=== PATIENT | female | born 1995 | race Caucasian/White ===

== ENCOUNTER → 2020-10-28 | Outpatient (CLI) | payer BC ==
--- NOTE | 2020-10-28 10:31 | US ---
EXAMINATION TYPE: Transabdominal DATE OF EXAM: 10/28/2020 8:16 AM COMPARISON: NONE CLINICAL HISTORY: Z36 confirm dates. Confirm Dates EXAM PERFORMED: Transabdominal (TA) EXAM MEASUREMENTS: GESTATIONAL AGE / DATING Physician Established (7 weeks/6 days) EDC: 06/10/2021 Dates by LMP (7 weeks/6 days) EDC: 06/10/2021 Dates by First Scan: No previous this is first scan Dates by Current Scan for (7 weeks/0 days) EDC: 06/16/2021 MATERNAL ANATOMY Uterus: 12.1 x 5.4 x 7.2 cm Right Ovary: 3.1 x 2.5 x 2.5 cm Left Ovary: 2.5 x 1.8 x 2.0 cm Post CDS / Adnexa: wnl Presence of free fluid: No Presence of corpus luteal cyst: Right Ovary= 1.8 x 1.8 x 1.8 cm GESTATION / SURVEY CRL: 0.9 cm (7 weeks/0 days) MSD: wnl Yolk Sac (normal less than 6mm): 3mm Heart Rate: 135 bpm Rhythm: Normal IUP: Viable IUP Date of LMP: 09/03/2020 Single, viable IUP/ No abnormality visualized at this time IMPRESSION: 1. Single intrauterine with an average ultrasound gestational age of 7 weeks. [place]-rump le ngth is 9 mm. Yolk sac is 3 mm. heart rate is 135 bpm.
== END | disposition home or self-care (01) ==
LOC: RADUSWWP 07:59
PROVIDERS: ATTEND Obstetrics & Gynecology
DX: Z36.87 Encounter for antenatal screening for uncertain dates (principal); Z3A.01 Less than 8 weeks gestation of pregnancy
CPT/HCPCS: 76801

== ENCOUNTER 2021-04-23 16:46 | Outpatient (CLI) | payer BC ==
[2021-04-23 18:15] LABS: Glucose,Whole Blood 128 mg/dL (75-99)
[2021-04-23 18:39] VITALS: BP 133/72; PULSE 114; RESP 16; TEMP 98
--- NOTE | 2021-05-20 07:10 | P.MSEPDOC ---
Presenting Problems - Arrival Data Date of Arrival on Unit: 04/23/21 Time of Arrival on Unit: 18:20 Mode of Transport: Ambulatory - Complaint OB-Reason for Admission/Chief Complaint: Dizziness, Other Comment: dizzy and almost passed out at home. at 1530 while working at desk. Medical History - Information : 1 Para: 0 Term: 0 : 0 Abortions: Spontaneous or Elective: 0 Number of Living Children: 0 - Gestational Age Gestational Age by KIMBERLYN (wks/days): 33 Weeks and 1 Days Review of Systems - Review of Systems Constitutional: No problems Breast: No problems ENT: No problems Cardiovascular: No problems Respiratory: No problems Gastrointestinal: No problems Genitourinary: No problems Musculoskeletal: No problems Neurological: No problems Skin: No problems Vital Signs - Temperature Temperature: 98.0 F Temperature Source: Axillary - Pulse Apical Pulse Rate: 114 Pulse Assessment Method: Auscultation - Respirations Respiratory Rate: 16 Oxygen Delivery Method: Room Air O2 Sat by Pulse Oximetry: 99 - Blood Pressure Right Arm Blood Pressure: 133/72 Blood Pressure Mean: 92 Blood Pressure Source: Automatic Cuff Medical Screen Scoring - Assessment - Baby A Baseline FHR: 140 Heart Rate - NICHD Category: Category I (Normal) NST: Reactive Physician Notification - Physician Notified Physician Notified Date: 04/23/21 Physician Notified Time: 18:20 Physician: Pilar Dye Order Received: Yes (discharge home) Maternal Triage Index - Non-Urgent/Priority 4 Non-Urgent Priority 4: Yes Criteria Met for Priority 4: ok now. just very worried about spell. no problems verbalizes. did see high risk for u/s early preg. Disposition - Disposition OB Disposition: Discharge to home, Written follow up instructions reviewed Discharge Date: 04/23/21 Discharge Time: 18:26 I agree with the RN Medical Screening Exam: Yes Case reviewed; plan agreed upon as documented in EMR&OBIX.: Yes Diagnosis: DIZZINESS AND GIDDINESS
== END 2021-04-23 18:26 | disposition home or self-care (01) ==
LOC: FBPOP 16:46
PROVIDERS: ATTEND Obstetrics & Gynecology
DX: O26.813 Pregnancy related exhaustion and fatigue, third trimester (principal); Z3A.33 33 weeks gestation of pregnancy
CPT/HCPCS: 59025; 99213

== ENCOUNTER 2021-05-29 22:22 | Outpatient (CLI) | payer BC ==
[2021-05-30 00:04] VITALS: BP 138/73; PULSE 94; RESP 16; TEMP 97.9
--- NOTE | 2021-05-30 14:54 | P.MSEPDOC ---
Presenting Problems - Arrival Data Date of Arrival on Unit: 05/29/21 Time of Arrival on Unit: 22:22 Mode of Transport: Ambulatory - Complaint OB-Reason for Admission/Chief Complaint: Rule Out SROM Comment: pt. present to triage due to possible SROM at 20:45, amnisure negative, contractions irregular, no cervical change after 1 hour Medical History - Information : 1 Para: 0 Term: 0 : 0 Abortions: Spontaneous or Elective: 0 Number of Living Children: 0 - Gestational Age Gestational Age by KIMBERLYN (wks/days): 38 Weeks and 3 Days Review of Systems - Review of Systems Constitutional: No problems Breast: No problems ENT: No problems Cardiovascular: No problems Respiratory: No problems Gastrointestinal: No problems Genitourinary: No problems Musculoskeletal: No problems Neurological: No problems Skin: No problems Vital Signs - Temperature Temperature: 97.9 F Temperature Source: Tympanic - Pulse Pulse Oximetery Pulse Rate: 94 Pulse Assessment Method: Automatic Cuff - Respirations Respiratory Rate: 16 Oxygen Delivery Method: Room Air O2 Sat by Pulse Oximetry: 97 - Blood Pressure Right Arm Blood Pressure: 138/73 Blood Pressure Mean: 94 Blood Pressure Source: Automatic Cuff Medical Screen Scoring - Cervical Exam Dilation (cm): 4 Effacement (%): 50 Station: -3 Membranes: Intact - Uterine Contractions Frequency From (mins): 3 Frequency To (mins): 10 Duration From (seconds): 50 Duration To (seconds): 110 Intensity: Absent Resting: Soft to palpation - Assessment - Baby A Baseline FHR: 140 Heart Rate - NICHD Category: Category I (Normal) NST: Reactive Physician Notification - Physician Notified Physician Notified Date: 05/30/21 Physician Notified Time: 23:40 Physician: Dr. BLANCO New Order Received: No - Notification Comment Comment: Orders to discharge patient home Maternal Triage Index - Maternal Triage Index Presenting for scheduled procedure w/no complaint: No - Stat/Priority 1 Stat Priority 1: No - Urgent/Priority 2 Urgent Priority 2: No - Prompt/Priority 3 Prompt Priority 3: No - Non-Urgent/Priority 4 Non-Urgent Priority 4: Yes Criteria Met for Priority 4: pt. present to triage due to possible SROM at 20:45, amnisure negative, contractions irregular, no cervical change after 1 hour Disposition - Disposition OB Disposition: Discharge to home Discharge Date: 05/30/21 Discharge Time: 23:49 I agree with the RN Medical Screening Exam: Yes Case reviewed; plan agreed upon as documented in EMR&OBIX.: Yes Diagnosis: FALSE LABOR AT OR AFTER 37 COMPLETED WEEKS OF GESTATION
== END 2021-05-29 23:49 | disposition home or self-care (01) ==
LOC: FBPOP 22:22
PROVIDERS: ATTEND Obstetrics & Gynecology
DX: O47.1 False labor at or after 37 completed weeks of gestation (principal); Z3A.38 38 weeks gestation of pregnancy
CPT/HCPCS: 59025; 84112; 99213

== ENCOUNTER 2021-06-03 05:40 | Inpatient (IN) | payer BC ==
--- NOTE | 2021-06-02 20:07 | P.HPOB ---
History of Present Illness H&P Date: 06/02/21 Chief Complaint: Induction of labor This is a 26 y.o. female, 1, para 0, with an estimated date of confinement of 06/10/2021, estimated gestational age of 39 weeks, who presents for induction of labor. She complains of frequent irregular contractions and pressure. course has been uncomplicated. labs: GC/Chlamydia/Trich-neg Hepatitis B surface antigen-neg [id number] Blood type-A+ Antibody screen-neg HIV-NR Hemoglobin-14 Random glucose-106 [id number] AFP-neg. 1 hr. GTT-164 3 hr. 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 Works from home. Review of Systems Constitutional: Denies chills, Denies fever Eyes: denies blurred vision, denies pain Ears, nose, mouth and throat: Denies headache, Denies sore throat Cardiovascular: Denies chest pain, Denies shortness of breath Respiratory: Denies cough Gastrointestinal: Reports abdominal pain (irregular contractions) Genitourinary: Reports pelvic pain, Reports Musculoskeletal: Reports low back pain Integumentary: Denies pruritus, Denies rash Neurological: Denies numbness, Denies weakness Psychiatric: Denies anxiety, Denies depression Past Medical History Past Medical History: Hyperlipidemia Additional Past Medical History / Comment(s): PCOS History of Any Multi-Drug Resistant Organisms: None Reported Additional Past Surgical History / Comment(s): [place] teeth Past Anesthesia/Blood Transfusion Reactions: No Reported Reaction Past Psychological History: No Psychological Hx Reported Smoking Status: Never smoker Past Alcohol Use History: None Reported Past Drug Use History: None Reported - Past Family History Father Family Medical History: Hypertension Brother(s) Additional Family Medical History / Comment(s): Blindness, Autism Medications and Allergies Home Medications Medication Instructions Recorded Confirmed Type Vit No.170/Iron/Folic 1 tab PO DAILY 04/23/21 05/29/21 History [Dermacinrx Prenatryl Caplet] Allergies Allergy/AdvReac Type Severity Reaction Status Date / Time acetaminophen [From [place]] Allergy Vomiting Verified 05/29/21 22:27 hydrocodone [From [place]] Allergy Vomiting Verified 05/29/21 22:27 Exam Osteopathic Statement: *. No significant issues noted on an osteopathic structural exam other than those noted in the History and Physical/Consult. HEENT: within normal limits Heart: regular rate and rhythm Lungs: clear to auscultation bilaterally Abdomen: , non-tender Cervix: 3.5 cm/60%/-2 heart tones: 140's by doppler Extremities: neg. Lester's Assessment and Plan (1) 39 weeks gestation of Status: Acute Code(s): Z3A.39 - 39 WEEKS GESTATION OF SNOMED Code(s): 82556646 Plan: Admission for oxytocin induction of labor. Expectant management. Epidural anesthesia if desired.
[2021-06-03] MEDS ORDERED: CARBOPROST TROMETHAMINE 250 MCG/ML 1 ML AMP IM PRN (05:53)
[2021-06-03] MEDS ORDERED: METHYLERGONOVINE 0.2 MG/ML 1 ML AMP IM PRN (05:53)
[2021-06-03] MEDS ORDERED: LIDOCAINE 1% (10MG/ML) FOR IV START INTRADERMA PRN (05:53)
[2021-06-03] MEDS ORDERED: TERBUTALINE 1 MG/ML VIAL SQ PRN (05:53)
[2021-06-03] MEDS ORDERED: OXYTOCIN 10 UNIT/ML 1 ML VIAL IM PRN (05:53)
[2021-06-03] MEDS ORDERED: OXYTOCIN 30 UNITS/500 ML NS 30 UNIT in SALINE 1 500ML.BAG IV SCH ×2 (05:53→14:15)
[2021-06-03] MEDS ORDERED: LIDOCAINE 0.5% (PF) 5 MG/ML (50 ML SDV) SQ PRN (05:53)
[2021-06-03] MEDS: LACTATED RINGERS 1,000 ML IV SCH ×2 (06:07→12:00)
[2021-06-03 06:19] LABS: Basophils % (A) 0 %; Eosinophils # (A) 0.1 k/uL (0-0.7); Eosinophils % (A) 2 %; HCT 37.2 % (34.0-46.0); HGB 11.8 gm/dL (11.4-16.0); Hypochromasia Slight; Lymphocytes # (A) 1.9 k/uL (1.0-4.8); Lymphocytes % (A) 25 %; MCH 28.3 pg (25.0-35.0); MCHC 31.6 g/dL (31.0-37.0); MCV 89.5 fL (80.0-100.0); Mean Platelet Volume 7.8; Monocytes # (A) 0.6 k/uL (0-1.0); Monocytes % (A) 8 %; Neutrophils # (A) 4.8 k/uL (1.3-7.7); Neutrophils % (A) 63 %; Platelet Count 354 k/uL (150-450); RBC 4.15 m/uL (3.80-5.40); RDW 14.8 % (11.5-15.5); WBC 7.5 k/uL (3.8-10.6)
[2021-06-03] MEDS ORDERED: ROPIVACAINE 100 MG, fentaNYL (PF). 200 MCG in SODIUM CHLORIDE 0.9% 76 ML EPIDURAL ONE (09:59)
--- NOTE | 2021-06-03 13:58 | P.PROBDLV ---
Vaginal Delivery Note - . Vaginal Delivery Note: The patient progressed to complete dilation after oxytocin induction of labor and artificial rupture membranes with clear fluid noted. She did receive epidural anesthesia. Once reaching complete, she began pushing. 's head came to a crown. With one further push, the infant's head delivered across the perineum. The anterior shoulder then delivered followed by a nuchal cord 1 that was reduced around the body with delivery. was placed on mother's abdomen. Cord was clamped and cut and nose and mouth were bulb suctioned. A viable female infant was noted with scores of 9 at 1 minute and 9 at 5 minutes and infant weight of 7 pounds 6.5 ounces. Her placenta delivered shortly thereafter, intact, with a three-vessel cord. Uterus contracted well after oxytocin was given and uterine massage was carried out. Inspection of the perineum revealed a second-degree perineal laceration. This area was anesthetized with 1% lidocaine and then sutured with 3-0 and 2-0 Vicryl suture in the usual multilayer fashion. Estimated blood loss is approximately 300 mL's. Mother and infant are in stable condition.
[2021-06-03] MEDS ORDERED: LANOLIN CREAM 5 GM TUBE TOPICAL PRN (14:05)
[2021-06-03] MEDS ORDERED: diphenhydrAMINE 50 MG CAP PO PRN (14:05)
[2021-06-03] MEDS ORDERED: diphenhydrAMINE 25 MG CAP PO PRN (14:05)
[2021-06-03] MEDS ORDERED: ACETAMINOPHEN TAB 325 MG TAB PO PRN (14:05)
[2021-06-03] MEDS ORDERED: ZOLPIDEM 5 MG TAB PO PRN (14:05)
[2021-06-03] MEDS ORDERED: BENZOCAINE/MENTHOL SPRAY 1 GM/SPRAY AEROSOL TOPICAL PRN (14:05)
[2021-06-03] MEDS ORDERED: diphenhydrAMINE 50 MG/ML 1 ML VIAL IVP PRN ×2 (14:05)
[2021-06-03] MEDS ORDERED: MEASLES-MUMPS-RUBELLA VACC/PF 12,500 UNIT/0.5 ML VIAL SQ ONE (14:05)
[2021-06-03] MEDS ORDERED: HYDROCORTISONE 2.5% RECTAL CREAM 30 GM TUBE RECTAL PRN (14:05)
[2021-06-03] MEDS ORDERED: SIMETHICONE 80 MG CHEWABLE PO PRN (14:05)
[2021-06-03] MEDS: IBUPROFEN 600 MG TAB PO PRN ×2 (14:10→22:04)
[2021-06-03] MEDS: ACETAMINOPHEN TAB 500 MG TAB PO PRN (17:31)
[2021-06-03 18:18] LABS: Basophils % (A) 0 %; Eosinophils # (A) 0.1 k/uL (0-0.7); Eosinophils % (A) 1 %; HCT 33.1 % (34.0-46.0); HGB 10.6 gm/dL (11.4-16.0); Hypochromasia Moderate; Lymphocytes # (A) 1.4 k/uL (1.0-4.8); Lymphocytes % (A) 10 %; MCH 29.3 pg (25.0-35.0); MCHC 32.1 g/dL (31.0-37.0); MCV 91.3 fL (80.0-100.0); Mean Platelet Volume 8.1; Monocytes # (A) 0.7 k/uL (0-1.0); Monocytes % (A) 5 %; Neutrophils # (A) 11.6 k/uL (1.3-7.7); Neutrophils % (A) 84 %; Platelet Count 315 k/uL (150-450); RBC 3.63 m/uL (3.80-5.40); RDW 14.9 % (11.5-15.5); WBC 13.9 k/uL (3.8-10.6)
[2021-06-03] MEDS: SENNOSIDES-DOCUSATE SODIUM 1 EACH TAB PO SCH (22:04)
[2021-06-04 02:14] VITALS: RESP 16
[2021-06-04] MEDS: ACETAMINOPHEN TAB 500 MG TAB PO PRN ×2 (04:20→11:27)
[2021-06-04 07:32] LABS: Basophils % (A) 0 %; Eosinophils # (A) 0.1 k/uL (0-0.7); Eosinophils % (A) 1 %; HCT 28.5 % (34.0-46.0); HGB 9.2 gm/dL (11.4-16.0); Hypochromasia Slight; Lymphocytes # (A) 1.6 k/uL (1.0-4.8); Lymphocytes % (A) 16 %; MCH 29.3 pg (25.0-35.0); MCHC 32.3 g/dL (31.0-37.0); MCV 90.8 fL (80.0-100.0); Mean Platelet Volume 8.6; Monocytes # (A) 0.7 k/uL (0-1.0); Monocytes % (A) 7 %; Neutrophils # (A) 7.3 k/uL (1.3-7.7); Neutrophils % (A) 75 %; Platelet Count 273 k/uL (150-450); RBC 3.14 m/uL (3.80-5.40); WBC 9.7 k/uL (3.8-10.6)
[2021-06-04 08:01] VITALS: BP 115/65; PULSE 85; TEMP 98.3
[2021-06-04] MEDS: IBUPROFEN 600 MG TAB PO PRN ×2 (08:21→15:05)
[2021-06-04] MEDS: SENNOSIDES-DOCUSATE SODIUM 1 EACH TAB PO SCH (08:21)
--- NOTE | 2021-06-04 09:52 | P.DS ---
Providers Date of admission: 06/03/21 05:40 Expected date of discharge: 06/04/21 Attending physician: Lillian Hall Primary care physician: Stated None - Discharge Diagnosis(es) (1) 39 weeks gestation of Current Visit: No Status: Acute Hospital Course: This is a 26-year-old female 1 para 0 at 39-0/7 weeks who presented for induction of labor. She underwent oxytocin induction of labor and delivered vaginally a viable female with scores of 9 at 1 minute and 9 at 5 minutes and weight of 7 pounds 6.5 ounces. Her course has been essentially uncomplicated. Initially her pain was more severe but has improved with alternating ibuprofen and Tylenol. She denies any headaches or dizziness or shortness of breath. Vital signs are stable. Abdomen is soft with fundus firm and nontender. Extremities show negative Homans. Impression is status post vaginal delivery day #1. Plan is to discharge home today. Routine instructions are given. She is advised to continue taking her vitamins and iron supplementation. She is advised follow-up in the office in 6 weeks for a check. She is advised to call the office if she has any further questions or concerns prior to her appointment time. She will be given a prescription for a breast pump. Procedures: Oxytocin induction of labor Spontaneous vaginal delivery of a viable female on 06/03/2021 Patient Condition at Discharge: Stable Plan - Discharge Summary New Discharge Prescriptions: New Acetaminophen Tab [Tylenol] 1,000 mg PO Q6HR PRN tab PRN Reason: Fever And/ Or Pain Ibuprofen [Motrin] 600 mg PO Q6HR PRN #60 tab PRN Reason: Mild Pain (Scale 1 To 3) Continue Vit No.170/Iron/Folic [Dermacinrx Prenatryl Caplet] 1 tab PO DAILY Discharge Medication List Vit No.170/Iron/Folic [Dermacinrx Prenatryl Caplet] 1 tab PO DAILY 04/23/21 [History] Acetaminophen Tab [Tylenol] 1,000 mg PO Q6HR PRN tab 06/04/21 [Rx] Ibuprofen [Motrin] 600 mg PO Q6HR PRN #60 tab 06/04/21 [Rx] Follow up Appointment(s)/Referral(s): Lillian Hall DO [Doctor of Osteopathic Medicine] - 07/13/21 11:30 am Activity/Diet/Wound Care/Special Instructions: Instructions 1. Do not begin any exercise program for 3 weeks. 2. Do not resume sexual relations for 3 weeks or longer if uncomfortable. 3. You may take tub baths or showers at any time. 4. You may use tampons if desired after 3 weeks. 5. Keep the area of episiotomy (stitches) clean and dry. 6. If you are not nursing, wear a good fitting, supportive bra during the day and limit fluid intake for at least 1 week to prevent breast engorgement. 7. Call the office, [phone], within the next week to make appointment for your 6 week checkup if it has not already been made. 8. Report any of the following occurrences to the doctor promptly: a. Heavy, excessive bleeding b. Chills, fever c. Burning or frequency of urination d. Pain or redness and breasts if nursing e. Increasing pain or swelling in episiotomy (stitches). In addition to the above instructions, the following additional should be followed: 1. No heavy lifting or straining (exercising) until after 6 week checkup. 2. Keep abdominal incision clean and dry: You may wear a dressing if more comfortable. 3. Make office appointment for 10 days after going home or as instructed by her doctor. Discharge Disposition: HOME SELF-CARE
== END 2021-06-04 15:15 | disposition home or self-care (01) | DRG 807 ==
LOC: 4FBP 05:40
PROVIDERS: ADMIT Obstetrics & Gynecology; ATTEND Obstetrics & Gynecology
PROC: 10E0XZZ Delivery of Products of Conception, External Approach (ICD-10-PCS; principal; 2021-06-03)
PROC: 0KQM0ZZ Repair Perineum Muscle, Open Approach (ICD-10-PCS; 2021-06-03)
PROC: 10907ZC Drainage of Amniotic Fluid, Therapeutic from Products of Conception, Via Natural or Artificial Opening (ICD-10-PCS; 2021-06-03)
PROC: 3E033VJ Introduction of Other Hormone into Peripheral Vein, Percutaneous Approach (ICD-10-PCS; 2021-06-03)
DX: O69.81X0 Labor and delivery complicated by cord around neck, without compression, not applicable or unspecified (principal); Z37.0 Single live birth; O70.1 Second degree perineal laceration during delivery; O99.284 Endocrine, nutritional and metabolic diseases complicating childbirth; E28.2 Polycystic ovarian syndrome; E78.5 Hyperlipidemia, unspecified; Z3A.39 39 weeks gestation of pregnancy; Z88.8 Allergy status to other drugs, medicaments and biological substances; Z88.5 Allergy status to narcotic agent
CPT/HCPCS: 85025; 86850; 86900; 86901; 90707

== ENCOUNTER 2022-07-04 17:25 | Inpatient (IN) | payer BC ==
[2022-07-04] MEDS ORDERED: LIDOCAINE 0.5% (PF) 5 MG/ML (50 ML SDV) SQ PRN (19:41)
[2022-07-04] MEDS ORDERED: AMPICILLIN 2,000 MG in SODIUM CHLORIDE 0.9% 100 ML IVPB STA (19:41)
[2022-07-04] MEDS ORDERED: TERBUTALINE 1 MG/ML VIAL SQ PRN (19:41)
--- NOTE | 2022-07-04 19:53 | P.HPOB ---
History of Present Illness H&P Date: 07/04/22 Chief Complaint: Labor 27-year-old presents at 36 weeks and 2 days complaining of contractions. Her cervix changed in triage from 3 cm to 4-5 cm dilated, 50% effaced, -2 station. She is suni every 3 minutes. heart tones are 150 with moderate variability and reactive. Review of Systems All systems: negative Constitutional: Denies chills, Denies fever Eyes: denies blurred vision, denies pain Ears, nose, mouth and throat: Denies headache, Denies sore throat Cardiovascular: Denies chest pain, Denies shortness of breath Respiratory: Denies cough Gastrointestinal: Denies abdominal pain, Denies diarrhea, Denies nausea, Denies vomiting Genitourinary: Denies dysuria, Denies hematuria Musculoskeletal: Denies myalgias Integumentary: Denies pruritus, Denies rash Neurological: Denies numbness, Denies weakness Psychiatric: Denies anxiety, Denies depression Endocrine: Denies fatigue, Denies weight change Past Medical History Past Medical History: Hyperlipidemia Additional Past Medical History / Comment(s): PCOS History of Any Multi-Drug Resistant Organisms: None Reported Additional Past Surgical History / Comment(s): [place] teeth Past Anesthesia/Blood Transfusion Reactions: No Reported Reaction Smoking Status: Never smoker - Past Family History Father Family Medical History: Diabetes Mellitus, Hypertension Brother(s) Additional Family Medical History / Comment(s): Blindness, Autism Medications and Allergies Allergies Allergy/AdvReac Type Severity Reaction Status Date / Time benzoyl peroxide Allergy Rash/Hives Verified 07/04/22 17:36 hydrocodone [From [place]] Allergy Vomiting Verified 07/04/22 17:36 salicylic acid Allergy Rash/Hives Verified 07/04/22 17:36 Exam Osteopathic Statement: *. No significant issues noted on an osteopathic structural exam other than those noted in the History and Physical/Consult. Vital Signs Temp Pulse Resp BP Pulse Ox 07/04/22 19:00 98.0 F 100 18 134/85 100 Intake and Output 07/04/22 07/04/22 07/04/22 06:59 14:59 22:59 Other: Weight 111.13 kg Heart: Regular rate and rhythm Lungs: Clear to auscultation bilaterally Abdomen: Soft, nontender Extremities: Negative Homans sign Assessment and Plan (1) Normal labor Current Visit: Yes Status: Acute Code(s): O80 - ENCOUNTER FOR FULL-TERM UNCOMPLICATED DELIVERY; Z37.9 - OUTCOME OF DELIVERY, UNSPECIFIED SNOMED Code(s): 75404463 (2) 36 weeks gestation of Current Visit: Yes Status: Acute Code(s): Z3A.36 - 36 WEEKS GESTATION OF SNOMED Code(s): 39618727 Plan: 1. Admit to family place 2. Expectant management 3. IV antibiotics for GBS prophylaxis and status 4. Anticipate normal vaginal delivery
[2022-07-04 20:04] LABS: Basophils # (A) 0.1 k/uL (0-0.2); Basophils % (A) 0 %; Eosinophils # (A) 0.1 k/uL (0-0.7); Eosinophils % (A) 1 %; HCT 35.3 % (34.0-46.0); HGB 11.6 gm/dL (11.4-16.0); Lymphocytes # (A) 1.8 k/uL (1.0-4.8); Lymphocytes % (A) 16 %; MCH 26.8 pg (25.0-35.0); MCHC 32.7 g/dL (31.0-37.0); MCV 81.8 fL (80.0-100.0); Mean Platelet Volume 9.3; Monocytes # (A) 0.8 k/uL (0-1.0); Monocytes % (A) 7 %; Neutrophils # (A) 8.8 k/uL (1.3-7.7); Neutrophils % (A) 75 %; Platelet Count 301 k/uL (150-450); RBC 4.32 m/uL (3.80-5.40); RDW 15.5 % (11.5-15.5); WBC 11.7 k/uL (3.8-10.6)
[2022-07-04] MEDS: LACTATED RINGERS 1,000 ML IV SCH (20:27)
[2022-07-05] MEDS: AMPICILLIN 1,000 MG in SODIUM CHLORIDE 0.9% 50 ML IVPB SCH ×3 (01:04→08:46)
[2022-07-05] MEDS ORDERED: CALCIUM CARBONATE 500 MG CHEWABLE PO PRN (02:21)
[2022-07-05] MEDS: LACTATED RINGERS 1,000 ML IV SCH ×3 (04:38→22:28)
[2022-07-05] MEDS ORDERED: BUPIVACAINE (PF) 0.25% 30 ML VIAL ONE (09:39)
[2022-07-05] MEDS ORDERED: fentaNYL (PF) 50 MCG/ML 5 ML AMP ONE (09:39)
[2022-07-05] MEDS ORDERED: SODIUM CHLORIDE 0.9% 100 ML BAG ONE (09:39)
[2022-07-05] MEDS ORDERED: OXYTOCIN 30 UNITS/500 ML NS 30 UNIT in SALINE 1 500ML.BAG IV SCH ×2 (10:45→13:30)
[2022-07-05] MEDS ORDERED: ROPIVACAINE 100 MG, fentaNYL (PF). 200 MCG in SODIUM CHLORIDE 0.9% 76 ML EPIDURAL ONE (10:49)
[2022-07-05] MEDS ORDERED: diphenhydrAMINE 50 MG CAP PO PRN (13:22)
[2022-07-05] MEDS ORDERED: diphenhydrAMINE 25 MG CAP PO PRN (13:22)
[2022-07-05] MEDS ORDERED: LANOLIN CREAM 5 GM TUBE TOPICAL PRN (13:22)
[2022-07-05] MEDS ORDERED: ZOLPIDEM 5 MG TAB PO PRN (13:22)
[2022-07-05] MEDS ORDERED: diphenhydrAMINE 50 MG/ML 1 ML VIAL IVP PRN ×2 (13:22)
[2022-07-05] MEDS ORDERED: SIMETHICONE 80 MG CHEWABLE PO PRN (13:22)
[2022-07-05] MEDS ORDERED: BENZOCAINE/MENTHOL SPRAY 1 GM/SPRAY AEROSOL TOPICAL PRN (13:22)
[2022-07-05] MEDS ORDERED: HYDROCORTISONE 2.5% RECTAL CREAM 30 GM TUBE RECTAL PRN (13:22)
[2022-07-05] MEDS: IBUPROFEN 600 MG TAB PO PRN ×2 (15:40→20:41)
--- NOTE | 2022-07-05 17:27 | P.PROBDLV ---
Vaginal Delivery Note - . Vaginal Delivery Note: When I saw the patient this morning, her contractions were less and she did sleep. Her cervix was 4-5 the last time she was checked last night and then this morning she was found to be 6 cm. At this point I did perform artificial rupture membranes with clear fluid noted. She had received several doses of antibiotics due to unknown group B streptococcus. She was started on oxytocin augmentation of labor. She received epidural anesthesia. Once reaching complete, she pushed for approximately 1 push and infant's head came to a crown. With one further push, the remainder the infant's head delivered followed by the anterior shoulder. Nuchal cord 1 was reduced around the 's head and then the remainder the body easily delivered and was placed on mother's abdomen. Nose and mouth were bulb suctioned. Cord was clamped and cut. Infant was taken to warmer for evaluation. A viable female infant was noted with scores of 9 at 1 minute and 9 at 5 minutes and weight of 6 lbs. 9 oz. Placenta delivered shortly afterwards intact, with a three-vessel cord. Uterus at first contracted fairly well with oxytocin and uterine massage. Inspection of the perineum revealed a second-degree perineal laceration. This area was anesthetized with 1% lidocaine and then sutured with 3-0 Vicryl suture in the usual multilayer fashion. At this time the patient was still noted to be bleeding more than normal and therefore her bladder was drained with a straight cath and then a gloved hand was placed within the uterine cavity to remove several blood clots. Once these clots were removed uterus did firm up well and bleeding was minimal. Estimated blood loss was approximately 300 mL's. Both mother and infant are in stable condition.
[2022-07-05] MEDS: ACETAMINOPHEN TAB 325 MG TAB PO PRN (18:42)
[2022-07-05] MEDS: SENNOSIDES-DOCUSATE SODIUM 1 EACH TAB PO SCH (20:41)
[2022-07-06] MEDS: ACETAMINOPHEN TAB 325 MG TAB PO PRN ×2 (00:40→08:09)
[2022-07-06] MEDS: IBUPROFEN 600 MG TAB PO PRN ×2 (04:28→10:54)
[2022-07-06 07:33] VITALS: PULSE 86; RESP 14; TEMP 98
[2022-07-06 07:39] VITALS: BP 99/68
[2022-07-06] MEDS: SENNOSIDES-DOCUSATE SODIUM 1 EACH TAB PO SCH (08:08)
[2022-07-06 08:42] LABS: Basophils % (A) 0 %; Eosinophils # (A) 0.1 k/uL (0-0.7); Eosinophils % (A) 2 %; HCT 27.7 % (34.0-46.0); Hypochromasia Slight; Lymphocytes # (A) 1.4 k/uL (1.0-4.8); Lymphocytes % (A) 20 %; MCH 27.4 pg (25.0-35.0); MCHC 32.6 g/dL (31.0-37.0); Mean Platelet Volume 8.3; Monocytes # (A) 0.5 k/uL (0-1.0); Monocytes % (A) 8 %; Neutrophils # (A) 4.7 k/uL (1.3-7.7); Neutrophils % (A) 69 %; Platelet Count 250 k/uL (150-450); RDW 15.7 % (11.5-15.5); WBC 6.9 k/uL (3.8-10.6)
--- NOTE | 2022-07-06 08:52 | P.DS ---
Providers Date of admission: 07/04/22 19:07 Expected date of discharge: 07/06/22 Attending physician: Lillian Hall Primary care physician: Stated None Hospital Course: This is a 27-year-old female 2 para 1 at 36-3/7 weeks who presented with contractions and found to make cervical change. She was observed overnight and did make cervical change to 6 cm. Artificial rupture membranes was carried out and oxytocin augmentation of labor was started. She also was given antibiotic prophylaxis due to unknown group B streptococcus. She delivered vaginally a viable female infant on 07/05/2022 with scores of 9 at 1 minute and 9 at 5 minutes and infant weight of 6 lbs. 9 oz. Her course has been uncomplicated. She is bottle feeding. Lochia is decreasing. Pain is well- controlled. Vital signs are stable. Abdomen is soft with fundus firm and nontender. Extremities show negative Homans. Impression is status post vaginal delivery day #1. Plan is to discharge home today as long as baby is able to go home. Routine instructions are given. She is advised to follow up in the office in 6 weeks for check. She will be given a prescription for ibuprofen. Procedures: Spontaneous vaginal delivery of a viable female on 07/05/2022 Patient Condition at Discharge: Stable Plan - Discharge Summary New Discharge Prescriptions: New Ibuprofen [Motrin] 600 mg PO Q6HR PRN #60 tab PRN Reason: Mild Pain (Scale 1 To 3) Discharge Medication List Ibuprofen [Motrin] 600 mg PO Q6HR PRN #60 tab 07/06/22 [Rx] Follow up Appointment(s)/Referral(s): Lillian Hall DO [Doctor of Osteopathic Medicine] - 6 Weeks Activity/Diet/Wound Care/Special Instructions: Instructions 1. Do not begin any exercise program for 3 weeks. 2. Do not resume sexual relations for 3 weeks or longer if uncomfortable. 3. You may take tub baths or showers at any time. 4. You may use tampons if desired after 3 weeks. 5. Keep the area of episiotomy (stitches) clean and dry. 6. If you are not nursing, wear a good fitting, supportive bra during the day and limit fluid intake for at least 1 week to prevent breast engorgement. 7. Call the office, [phone], within the next week to make appointment for your 6 week checkup if it has not already been made. 8. Report any of the following occurrences to the doctor promptly: a. Heavy, excessive bleeding b. Chills, fever c. Burning or frequency of urination d. Pain or redness and breasts if nursing e. Increasing pain or swelling in episiotomy (stitches). In addition to the above instructions, the following additional should be followed: 1. No heavy lifting or straining (exercising) until after 6 week checkup. 2. Keep abdominal incision clean and dry: You may wear a dressing if more comfortable. 3. Make office appointment for 10 days after going home or as instructed by her doctor. Discharge Disposition: HOME SELF-CARE
[2022-07-06] MEDS: LACTATED RINGERS 1,000 ML IV SCH ×2 (10:32→10:34)
== END 2022-07-06 14:10 | disposition home or self-care (01) | DRG 807 ==
LOC: FBPOP 17:25 → 4FBP 19:07
PROVIDERS: ADMIT Obstetrics & Gynecology; ATTEND Obstetrics & Gynecology
PROC: 0KQM0ZZ Repair Perineum Muscle, Open Approach (ICD-10-PCS; principal; 2022-07-05)
PROC: 10E0XZZ Delivery of Products of Conception, External Approach (ICD-10-PCS; principal; 2022-07-05)
PROC: 10907ZC Drainage of Amniotic Fluid, Therapeutic from Products of Conception, Via Natural or Artificial Opening (ICD-10-PCS; principal; 2022-07-05)
DX: O60.14X0 Preterm labor third trimester with preterm delivery third trimester, not applicable or unspecified (principal); O99.284 Endocrine, nutritional and metabolic diseases complicating childbirth; E78.5 Hyperlipidemia, unspecified; O69.81X0 Labor and delivery complicated by cord around neck, without compression, not applicable or unspecified; O70.1 Second degree perineal laceration during delivery; E28.2 Polycystic ovarian syndrome; Z88.3 Allergy status to other anti-infective agents; Z88.5 Allergy status to narcotic agent; Z88.8 Allergy status to other drugs, medicaments and biological substances; Z28.310 Unvaccinated for COVID-19; Z3A.36 36 weeks gestation of pregnancy; Z37.0 Single live birth
CPT/HCPCS: 59025; 85025; 86850; 86900; 86901; 88307; 99213